=== PATIENT | male | born 1955 | race Two or more races ===

== ENCOUNTER 2022-07-06 05:19 | Day surgery (SDC) | payer MEDICARE, MEDICAID ==
[2022-06-28 12:11] LABS: BASOPHILS % (AUTO) 0.7 % (0-1); EOSINOPHILS % (AUTO) 0.6 % (0-6); LYMPHOCYTES # (AUTO) 1.3 X10'3 (1.1-4.8); LYMPHOCYTES % (AUTO) 20.5 % (21-51); MEAN CORPUSCULAR HGB CONC 33.8 g/dL (33.0-36.5); MEAN CORPUSCULAR VOLUME 94.6 FL (78-98); MEAN PLATELET VOLUME 8.8 FL (7.4-10.4); MONOCYTES # (AUTO) 0.7 X10'3 (0-0.9); MONOCYTES % (AUTO) 11.8 % (2-12); NEUTROPHILS # (AUTO) 4.1 X10'3 (1.8-7.7); NEUTROPHILS % (AUTO) 66.4 % (42-75); PRE OP HEMATOCRIT 44.7 % (42.0-52.0); PRE OP HEMOGLOBIN 15.1 g/dL (14.0-17.9); PRE OP PLATELET COUNT 222 X10'3 (140-440); RED BLOOD COUNT 4.73 X10'6 (4.70-6.10); RED CELL DISTRIBUTION WIDTH 13.8 % (11.5-14.5)
[2022-06-28 12:32] LABS: ALBUMIN 3.7 G/DL (3.4-5.0); ALKALINE PHOSPHATASE 60 IU/L (46-116); BLOOD UREA NITROGEN 18 MG/DL (7-18); BUN/CREATININE RATIO 20.2 (10.0-20.0); CALCIUM 8.3 MG/DL (8.5-10.1); CHLORIDE 102 MMOL/L (99-107); CREATININE 0.89 MG/DL (0.60-1.10); PRE OP ALT 28 U/L (30-65); PRE OP ANION GAP 7 (8-16); PRE OP AST 17 U/L (10-37); PRE OP BILIRUB, TOTAL 0.5 MG/DL (0.0-1.0); PRE OP GLUCOSE 95 MG/DL (70-104); PRE OP SODIUM 139 MMOL/L (135-145); TOTAL CARBON DIOXIDE 29.8 MMOL/L (24-32); TOTAL PROTEIN 7.5 G/DL (6.4-8.2); eGFR 86 ML/MIN
[2022-06-28 12:40] LABS: PRE OP POTASSIUM 3.3 MMOL/L (3.4-5.1)
[2022-07-06] VITALS (8 sets, daily range): BP systolic 126–154; BP diastolic 76–89
[~2022-07-06] VITALS: Ht 162.6 cm; Wt 88.5 kg
[~2022-07-06 05:19] MED LIST: BUPR1PAT22 TOP; CHLO25TA10 PO; DEXL60CA6 PO; POTA-366 PO; TRAM50TA2 PO; ringers solution, lacted 1,000 ML IV SCH
[2022-07-06] MEDS ORDERED: cefazolin 2gm/D5W 100mL 100 ML IV ONE (05:30)
[2022-07-06] MEDS ORDERED: famotidine 20mg tablet PO ONE (05:30)
[2022-07-06 07:03] LABS: ISTAT ANION GAP 10 (8-12); ISTAT BUN 22 mg/dL (7-18); ISTAT CL 100 mmol/L (99-107); ISTAT CREATININE 0.8 mg/dL (0.8-1.3); ISTAT GLUCOSE 102 mg/dL (70-104); ISTAT HGB 14.3 g/dl (14.0-17.9); ISTAT Hct 42 %PCV (42-52); ISTAT IONIZED CALCIUM 1.17 mmol/L (1.03-1.32); ISTAT K 3.3 mmol/L (3.5-5.1); ISTAT NA 139 mmol/L (135-145); ISTAT TOTAL CO2 29 mmol/L (24-32); ISTAT eGFR > 90 ML/MIN; POC BUN/CREATININE RATIO 27.5 (5.4-32.0)
[2022-07-06] MEDS ORDERED: ondansetron/PF 4mg/2ml inj ONE (07:11)
[2022-07-06] MEDS ORDERED: LIDOcaine 2% (20mg/ml) 5ml vial ONE (07:11)
[2022-07-06] MEDS ORDERED: ROPIVAcaine 0.5% (5mg/ml) 30ml vial ONE (07:11)
[2022-07-06] MEDS ORDERED: fentaNYL/PF 50MCG/1 ML 2ML syringe ONE (07:11)
[2022-07-06] MEDS ORDERED: propofol inj 20 ML IV ONE (07:11)
[2022-07-06] MEDS ORDERED: midazolam 1 mg/ML 2ml injection ONE (07:11)
[2022-07-06] MEDS ORDERED: sevoflurane 250ml liquid IH ONE (07:12)
[2022-07-06] MEDS ORDERED: dexamethasone sod phosphate 10mg/ml inj ONE (07:12)
[2022-07-06] MEDS ORDERED: acetaminophen 1,000mg/100ml IV 100 ML IV ONE (07:30)
[2022-07-06] MEDS ORDERED: enalaprilat dihydrate 2.5mg/2ml vial IV PRN (07:55)
[2022-07-06] MEDS ORDERED: ondansetron/PF 4mg/2ml inj IV PRN (07:55)
[2022-07-06] MEDS ORDERED: ringers solution, lacted 1,000 ML IV SCH (07:55)
[2022-07-06] MEDS ORDERED: meperidine/PF 25mg/ml syringe IV PRN ×2 (07:55)
[2022-07-06] MEDS ORDERED: hydrALAZINE 20mg/ml inj. IV PRN (07:55)
[2022-07-06] MEDS ORDERED: morphine 2 MG/ML inj. syringe IV PRN (07:55)
[2022-07-06] MEDS ORDERED: morphine 4 MG/ML inj SYRINge IV PRN (07:55)
--- NOTE | 2022-07-06 08:28 | NUR ---
Received from OR via [facility], accompanied by Anesthesiologist DR. CHEW and report given by Anesthesiolgist. RIGHT HAND 20G PIV WITH LR RUNNING PER ORDER. 5L MASK WITH SATURATIONS 100%. DENIES PAIN. ABLE TO WIGGLE LEFT FINGERS. ISLAND DRESSING TO LEFT SHOULDER CDI, SLEEVE AND SLING IN PLACE.
[2022-07-06] MEDS ORDERED: HYDROcodone/acetaminophen 10/325mg tab PO PRN (08:50)
--- NOTE | 2022-07-06 10:38 | NUR ---
DC HOME: ALL DISCHARGE CRITERIA HAS BEEN MET. VSS, PAIN AT A TOLERABLE LEVEL, ABLE TO SAFELY AMBULATE AND TRANSFER SELF. IV TAKEN OUT WITHOUT ANY COMPLICATIONS. ALL DISCHARGE INSTRUCTIONS COVERED WITH PATIENT AND ALL QUESTIONS ANSWERED. PATIENT TAKEN OUT VIA WHEELCHAIR TO PERSONAL VEHICLE WHERE ,[place], DROVE PATIENT HOME.
== END 2022-07-06 10:38 | disposition home or self-care (01) ==
LOC: PAS 05:19
PROVIDERS: ATTEND Orthopaedic Surgery
DX: M75.42 Impingement syndrome of left shoulder (principal); M75.52 Bursitis of left shoulder; G47.30 Sleep apnea, unspecified; E66.9 Obesity, unspecified; Z68.31 Body mass index [BMI] 31.0-31.9, adult; I10 Essential (primary) hypertension; M19.011 Primary osteoarthritis, right shoulder; E87.6 Hypokalemia; K21.9 Gastro-esophageal reflux disease without esophagitis; G89.18 Other acute postprocedural pain; Z98.890 Other specified postprocedural states; Z72.89 Other problems related to lifestyle; Z79.899 Other long term (current) drug therapy; Z90.49 Acquired absence of other specified parts of digestive tract; Z87.891 Personal history of nicotine dependence; Z85.038 Personal history of other malignant neoplasm of large intestine
CPT/HCPCS: 29823; 36415; 64415; 80047; 80053; 82948; 85025; J0131; J0690; J1100; J2250; J2405; J2704; J2795; J3010; J3490; J7120; Z7506; Z7508; Z7512; A4565; A4618; A6449; A7000

== ENCOUNTER → 2023-09-14 | Outpatient (CLI) | payer MEDICARE, MEDICAID ==
[~2023-09-14] MED LIST changes: +DEXL60CA18 PO; -DEXL60CA6 PO; -ringers solution, lacted 1,000 ML IV SCH
[2023-09-14 13:37] VITALS: PULSE 64; RESP 16; O2SAT 97
== END | disposition home or self-care (01) ==
LOC: RT 13:00
PROVIDERS: ATTEND Student in an Organized Health Care Education/Training Program
DX: R94.2 Abnormal results of pulmonary function studies (principal); R05.3 Chronic cough
CPT/HCPCS: 94010; 94760

== ENCOUNTER 2024-05-15 14:57 | Outpatient (CLI) | payer MEDICARE, MEDICAID | END 2024-05-15 23:59 | disposition home or self-care (01) | LOC: RAD 14:57 | PROVIDERS: ATTEND Physician Assistant | DX: M79.641 Pain in right hand (principal); M79.642 Pain in left hand; M25.512 Pain in left shoulder | CPT/HCPCS: 73030; 73130 ==

== ENCOUNTER 2024-05-28 11:01 | Outpatient (CLI) | payer MEDICARE, MEDICAID ==
[2024-05-28 11:45] LABS: ALANINE AMINOTRANSFERASE 28 U/L (12-78); ALBUMIN 3.6 G/DL (3.4-5.0); ALBUMIN/GLOBULIN RATIO 0.9 (1.1-1.5); ALKALINE PHOSPHATASE 53 IU/L (46-116); ANION GAP 4 (8-16); ASPARTATE AMINO TRANSFERASE 12 U/L (10-37); BILIRUBIN,TOTAL 0.5 MG/DL (0.1-1.0); BLOOD UREA NITROGEN 15 MG/DL (7-18); BUN/CREATININE RATIO 15.5 (10.0-20.0); C-REACTIVE PROTEIN 0.68 MG/DL (0.0-0.5); CALCIUM 8.8 MG/DL (8.5-10.1); CHLORIDE 103 MMOL/L (99-107); CREATININE 0.97 MG/DL (0.60-1.10); GLUCOSE 96 MG/DL (70-104); POTASSIUM 3.3 MMOL/L (3.5-5.1); SODIUM 140 MMOL/L (135-145); TOTAL CARBON DIOXIDE 32.7 MMOL/L (24-32); TOTAL PROTEIN 7.4 G/DL (6.4-8.2); eGFR 77 ML/MIN
[2024-05-29 13:12] LABS: ANTINUCLEAR ANTIBODIES Negative (Negative)
== END 2024-05-28 23:59 | disposition home or self-care (01) ==
LOC: RAD 11:01
PROVIDERS: ATTEND Physician Assistant
DX: M79.642 Pain in left hand (principal); E87.5 Hyperkalemia; M79.641 Pain in right hand
CPT/HCPCS: 36415; 80053; 85651; 86038; 86140; 86431

== ENCOUNTER 2024-08-28 12:15 | Outpatient (CLI) | payer MEDICARE, MEDICAID ==
[2024-08-28 13:17] LABS: CREATININE 1.32 MG/DL (0.60-1.10); TOTAL CARBON DIOXIDE 25.7 MMOL/L (24-32); eGFR 54 ML/MIN
== END 2024-08-28 23:59 | disposition home or self-care (01) ==
LOC: LAB 12:15
PROVIDERS: ATTEND Physician Assistant
DX: M79.641 Pain in right hand (principal); M79.642 Pain in left hand; E87.6 Hypokalemia
CPT/HCPCS: 36415; 80053; 85651; 86038; 86140; 86431

== ENCOUNTER 2024-09-04 12:47 | Outpatient (CLI) | payer MEDICARE, MEDICAID ==
[2024-09-04 13:28] LABS: MEAN PLATELET VOLUME 7.6 FL (7.4-10.4); RED CELL DISTRIBUTION WIDTH 14.5 % (11.5-14.5)
[2024-09-04 15:32] LABS: EOSINOPHILS % (MANUAL) 24.0 % (0-6); LYMPHOCYTES % (MANUAL) 10.0 % (21-51); MONOCYTES % (MANUAL) 11.0 % (2-12); NEUTROPHILS % (MANUAL) 55.0 % (42-75); PLATELET ESTIMATE NORMAL
== END 2024-09-04 23:59 | disposition home or self-care (01) ==
LOC: LAB 12:47
PROVIDERS: ATTEND Family Medicine
DX: R10.30 Lower abdominal pain, unspecified (principal); E04.1 Nontoxic single thyroid nodule
CPT/HCPCS: 80074; 80076; 83690; 84436; 84443; 85007; 85025

== ENCOUNTER 2024-09-05 12:15 | Outpatient (CLI) | payer MEDICARE, MEDICAID ==
--- NOTE | 2024-09-05 14:49 | RADIOLOGY REPORT ---
ULTRASOUND SOFT TISSUE HEAD AND NECK CLINICAL INDICATION: THYROID NODULE TECHNIQUE: Multiple real time sonographic images of the thyroid were obtained. Comparison: None FINDINGS: The right thyroid gland measures 3.2 x 1.7 x 1.5 cm. The left thyroid gland measures approximately 2.4 x 1.2 x 1.3 cm. The isthmus measures 0.9 cm. Hypoechoic nodule in the thyroid isthmus measures 0.5 cm, TR 4. Hypoechoic nodule in the left midpole measures 0.4 cm, TR 4. IMPRESSION: Hypoechoic nodule in the thyroid isthmus measures 0.5 cm, TR 4. Hypoechoic nodule in the left midpole measures 0.4 cm, TR 4. [employer] TI-RADS Categories and Recommendations (2017): TR1: 0 points, Benign, No FNA TR2: 2 points, Not suspicious, No FNA TR3: 3 points, Mildly suspicious, FNA if > or = 2.5 cm, Follow if > or = 1.5 cm TR4: 4-6 points, Moderately Suspicious, FNA if > or = 1.5 cm, Follow if > or = 1.0 cm TR5: 7+ points, Highly Suspicious, FNA if > or = 1.0 cm, Follow if > or = 0.5 cm Follow-up ultrasound guidelines: TR5: yearly for 5 years, if no growth or change in TI-RADS level TR4: at 1, 2, 3 and 5 years, if no growth or change in TI-RADS level TR3: at 1, 3 and 5 years, if no growth or change in TI-RADS level If increased but below threshold for FNA, repeat in one year. Source: ACR Thyroid Imaging, Reporting and Data System (TI-RADS): White Paper of the A[employer] TI-RADS Committee. Katiana morales al., J Am Randal Radiol 2017;14:587-595.
== END 2024-09-05 23:59 | disposition home or self-care (01) ==
LOC: RAD 12:15
PROVIDERS: ATTEND Family Medicine
DX: E04.1 Nontoxic single thyroid nodule (principal)
CPT/HCPCS: 76536

== ENCOUNTER 2024-09-10 11:03 | Outpatient (CLI) | payer MEDICARE, MEDICAID ==
[2024-09-10] MEDS ORDERED: iohexol 300mg/ml 100ml inj. ONE (11:32)
--- NOTE | 2024-09-10 12:23 | RADIOLOGY REPORT ---
Exam: CT CT ABDOMEN PELVIS W/ IV CONTRAST History: ABD PAIN COMPARISON: None Technique: Multidetector spiral CT of the abdomen and pelvis was performed from lung bases to pubic symphysis. Intravenous contrast was administered during this examination. Portal venous imaging was obtained. Axial, coronal and sagittal multiplanar reformats were performed by the technologist on a separate workstation. Radiation Dose : Abdomen/Pelvis: CTDIvol 27 mGy, DLP 1487 mGy*cm. CONTRAST: Type of contrast: Omni 300 Contrast injected: 100 mL Findings: Lung Bases: No acute or significant lung base finding. Normal heart size. No pleural or pericardial effusion. Liver: The liver is normal in size. No focal lesions. Normal hepatic vascular enhancement. Gallbladder and biliary Tree: Gallbladder is surgically absent. Spleen: Unremarkable Pancreas: The pancreas is normal in appearance without focal lesions or abnormal enhancement. Adrenal Glands: Unremarkable Kidneys: No hydronephrosis. Bladder: Unremarkable Bowel: The stomach is grossly normal in appearance. Small bowel and colon are normal in caliber and d istribution. The appendix is not visualized; however, no secondary findings of acute appendicitis alicia ntified. Scattered colonic diverticulosis. Postsurgical changes in the right colon. Ascites: Absent Lymphadenopathy: Retroperitoneal and mesenteric lymphadenopathy with associated stranding. Abdominal wall and Mesentery: Retroperitoneal and mesenteric lymphadenopathy with associated strandin g. Vasculature: Calcified atherosclerotic disease. Pelvic Organs: Unremarkable Musculoskeletal: No aggressive focal bony lesions, acute fractures or dislocation. IMPRESSION: 1. No definite acute intra-abdominal process. Abnormal retroperitoneal and mesenteric lymphadenopath y with associated stranding. Clinical correlation and continued follow-up is recommended. CT-guided biopsy of the largest and most accessible lymph node could be attempted. Radiation optimization: All CT scans at this facility use at least one of these dose optimization alondra hniques: Automated exposure control mA and/or kV adjustment per patient size (includes targeted exams where dose is matched to clinical indication) or iterative reconstruction. HS:Y
== END 2024-09-10 23:59 | disposition home or self-care (01) ==
LOC: RAD 11:03
PROVIDERS: ATTEND Family Medicine
DX: I25.10 Atherosclerotic heart disease of native coronary artery without angina pectoris (principal); R10.30 Lower abdominal pain, unspecified; Z90.49 Acquired absence of other specified parts of digestive tract; E04.1 Nontoxic single thyroid nodule
CPT/HCPCS: 74177; Q9967